=== PATIENT | female | born 1935 | race Hispanic/Latino ===

== ENCOUNTER 2017-03-26 10:30 | Inpatient (IN) | payer MEDICARE, BC ==
[2017-03-26 10:33] VITALS: BMI 16.7
[2017-03-26] MEDS ORDERED: SODIUM CHLORIDE 0.9% IV STA (11:22)
[2017-03-26] MEDS ORDERED: cefTRIAXone 1 gm 1 GM/100 ML BAG IVPB STA (11:24)
--- NOTE | 2017-03-26 11:25 | ED PDOC ---
Arrival/HPI - General Chief Complaint: Weakness/Neurological Deficit Time Seen by Provider: 03/26/17 11:21 Historian: Patient, Spouse - History of Present Illness Narrative History of Present Illness (Text): 03/26/17 11:24 82 year old female whose past medical history includes hypertension and hypercholesterolemia presents to the emergency department with hematuria for the past two days. Patient states she feels a burning sensation when urinating. states she has not been eating. Patient reports she is tremulous today. She states she went to an urgent care yesterday and was given Bactrim, 3rd pill taken this morning, with no improvement. Denies fever or back pain. Time/Duration: < week Symptom Onset: Gradual Symptom Course: Unchanged Modifying Factors (Text): Bactrim with no improvement Past Medical History - Provider Review Nursing Documentation Reviewed: Yes - Infectious Disease Hx of Infectious Diseases: None - Tetanus Immunization Tetanus Immunization: Unknown - Cardiac Hx Cardiac Disorders: Yes (tachycardia) Hx Hypertension: Yes - Pulmonary Hx Respiratory Disorders: Yes Hx Chronic Obstructive Pulmonary Disease (COPD): Yes - Neurological Hx Neurological Disorder: No - HEENT Hx HEENT Disorder: No - Renal Hx Renal Disorder: Yes Hx Renal Failure: Yes (resolved) - Endocrine/Metabolic Hx Endocrine Disorders: No - Hematological/Oncological Hx Blood Disorders: No - Integumentary Hx Dermatological Disorder: No - Musculoskeletal/Rheumatological Hx Musculoskeletal Disorders: Yes Hx Arthritis: Yes - Gastrointestinal Hx Gastrointestinal Disorders: Yes Hx Gastroesophageal Reflux: Yes - Genitourinary/Gynecological Hx Genitourinary Disorders: No - Psychiatric Hx Psychophysiologic Disorder: No Hx Substance Use: No - Past Surgical History Past Surgical History: No Previous - Anesthesia Hx Anesthesia: No Hx Anesthesia Reactions: No Hx Malignant Hyperthermia: No - Suicidal Assessment Feels Threatened In Home Enviroment: No Family/Social History - Physician Review Nursing Documentation Reviewed: Yes Family/Social History: Unknown Family HX Smoking Status: Current Some Days Smoker Hx Alcohol Use: No Hx Substance Use: No Hx Substance Use Treatment: Yes Allergies/Home Meds Allergies/Adverse Reactions: Allergies No Known Allergies Allergy (Verified 03/26/17 10:33) Home Medications: Home Meds Medication Instructions Recorded Confirmed Pravastatin Sodium [Pravachol] 20 mg PO DAILY 03/26/17 03/26/17 Sulfamethoxazole/Trimethoprim 1 tab PO BID 03/26/17 03/26/17 [Bactrim DS Tab] Valsartan [Diovan] 320 mg PO DAILY 03/26/17 03/26/17 amLODIPine [Norvasc] 5 mg PO DAILY 03/26/17 03/26/17 Review of Systems - Physician Review All systems were reviewed & negative as marked: Yes - Review of Systems Constitutional: absent: Fevers Genitourinary Female: Dysuria, Hematuria Musculoskeletal: absent: Back Pain Physical Exam - Physical Exam Narrative Physical Exam (Text): Constitutional: No acute distress. Head: Normocephalic. Atraumatic. Eyes: PERRL. ENT: Dry mucous membranes. Neck: Supple. Cardiovascular: Regular rate. Murmur. Chest: No tenderness. Respiratory: Clear to auscultation bilaterally. GI: Soft. Suprapubic tenderness. Nondistended. Back: No CVA tenderness. Musculoskeletal: No tenderness or swelling of extremities. Skin: No rash. Neurologic: Alert, no focal deficit. Vital Signs Reviewed: Yes Vital Signs Temp Pulse Resp BP Pulse Ox 03/26/17 13:09 89 18 138/67 96 03/26/17 12:02 98 H 18 142/69 95 03/26/17 10:34 98.6 F 108 H 17 146/72 94 L Temperature: Afebrile Blood Pressure: Normal Pulse: Tachycardic Respiratory Rate: Normal Appearance: Positive for: Well-Appearing, Non-Toxic, Comfortable Pain Distress: None Mental Status: Positive for: Alert and Oriented X 3 Medical Decision Making ED Course and Treatment: Impression: 82 year old female whose past medical history includes hypertension and hypercholesterolemia presents to the emergency department with hematuria for the past two days. Differential Diagnosis included but are not limited to: Dehydration vs UTI Plan: -- EKG, Chest X-ray -- Rocephin -- IV fluids -- Labs, Urinalysis -- Reassess and disposition Prior Visits: Notes and results from previous visits were reviewed. Patient last seen in the ED on 11/02/14 for generalized weakness and loss of appetite and admitted for hyperkalemia Progress Notes: EKG shows NSR at [address]/T wave changes. Interpreted by me. Chest X-ray Concrete Bucket Loader: Fletcher Berman MD IMPRESSION: No active disease Patient with tachycardia on arrival but no other sepsis criteria so CODE STROKE not activated. Patient with UTI, lactate 3.8, requires admission for continued hydration and antibiotics intravenously. Dr. Waddell accepts patient to his service, and his neuropsychology medical consultant notified. - Lab Interpretations Lab Results: 03/26/17 11:30 03/26/17 11:30 Lab Results 03/26/17 11:55: Urine Color Yellow, Urine Appearance Sl cloudy, Urine pH 6.0, Ur Specific [place] 1.010, Urine Protein Trace H, Urine Glucose (UA) Negative, Urine Ketones Negative, Urine Blood Moderate H, Urine Nitrate Negative, Urine Bilirubin Negative, Urine Urobilinogen 0.2, Ur Leukocyte Esterase Large H, Urine RBC 1 - 3, Urine WBC Tntc, Ur Epithelial Cells 1 - 3, Urine Bacteria Mod 03/26/17 11:30: WBC 9.5, RBC 3.83, Hgb 12.5, Hct 35.8 L, MCV 93.5, MCH 32.6, MCHC 34.9, RDW 13.9, Plt Count 351, MPV 9.2, Gran % 65.6, Lymph % (Auto) 24.7, [place] % (Auto) 8.3 H, Eos % (Auto) 0.6 L, Baso % (Auto) 0.8, Gran # 6.21, Lymph # 2.3, [place] # 0.8 H, Eos # 0.1, Baso # 0.08 03/26/17 11:30: Sodium 136, Chloride 104, Potassium 3.8, Carbon Dioxide 20 L, Anion Gap 16, BUN 16, Creatinine 1.1, Est GFR ( Amer) 58, Est GFR (Non- Af Amer) 48, Random Glucose 105, Calcium 9.5, Total Bilirubin 0.6, AST 30, ALT 19, Alkaline Phosphatase 70, Total Protein 7.3, Albumin 4.4, Globulin 3.0, Albumin/Globulin Ratio 1.5 03/26/17 11:30: pO2 47, VBG pH 7.34, VBG pCO2 37.0 L, VBG HCO3 20.0 L, VBG Total CO2 21.1 L, VBG O2 Sat (Calc) 87.3 H, VBG Base Excess -5.2 L, VBG Potassium 3.9, Sodium 136.0, Chloride 107.0, Glucose 109 H, Lactate 3.1 H, FiO2 21.0, Venous Blood Potassium 3.9 - RAD Interpretation Radiology Orders: 03/26/17 11:22 CHEST PORTABLE [RAD] Stat Bag Shop Worker: Radiologist - EKG Interpretation Interpreted by ED Physician: Yes Type: 12 lead EKG - Medication Orders Current Medication Orders: Discontinued Medications Sodium Chloride (Sodium Chloride 0.9%) 1,131 mls @ 2,262 mls/hr IV .Q30M STA Stop: 03/26/17 11:51 Last Admin: 03/26/17 11:53 Dose: 2,262 mls/hr Ceftriaxone Sodium (Rocephin 1 Gram Ivpb) 1 gm in 100 mls @ 200 mls/hr IVPB STAT STA PRN Reason: Protocol Stop: 03/26/17 11:53 Last Admin: 03/26/17 11:53 Dose: 200 mls/hr - Scribe Statement The provider has reviewed the documentation as recorded by the Thierno Rosa Provider Scribe Attestation: All medical record entries made by the Faraibmelva were at my direction and personally dictated by me. I have reviewed the chart and agree that the record accurately reflects my personal performance of the history, physical exam, medical decision making, and the department course for this patient. I have also personally directed, reviewed, and agree with the discharge instructions and disposition. Disposition/Present on Arrival - Present on Arrival Any Indicators Present on Arrival: No History of DVT/PE: No History of Uncontrolled Diabetes: No Urinary Catheter: No History of Decub. Ulcer: No History Surgical Site Infection Following: None - Disposition Have Diagnosis and Disposition been Completed?: Yes Diagnosis: UTI (urinary tract infection), Failure of outpatient treatment Disposition: HOSPITALIZED Disposition Time: 12:20 Patient Plan: Admission Condition: FAIR Referrals: Charbel Morales MD [Primary Care Provider] - Follow up with primary
[2017-03-26 11:52] LABS: ADD MANUAL DIFF? NO
[2017-03-26 11:58] LABS: VENOUS BLOOD GAS BASE EXCESS -5.2 mmol/L (0.0-2.0); VENOUS BLOOD PH 7.34 (7.32-7.43)
[2017-03-26 12:00] LABS: BASO # 0.08 K/mm3 (0.0-2.0); BASO % 0.8 % (0.0-3.0); EOS # 0.1 (0.0-0.7); EOS % 0.6 % (1.5-5.0); GRAN # 6.21 (1.4-6.5); GRAN % 65.6 % (50.0-68.0); HEMATOCRIT 35.8 % (36.0-48.0); LYMPH # 2.3 (1.2-3.4); LYMPH % 24.7 % (22.0-35.0); MEAN CELL VOLUME 93.5 fL (80.0-105.0); MEAN CORPUSCULAR HEMOGLOBIN 32.6 pg (25.0-35.0); MEAN CORPUSCULAR HGB CONC 34.9 g/dl (31.0-37.0); MEAN PLATELET VOLUME 9.2 fl (7.0-11.0); MONO # 0.8 (0.1-0.6); MONO % 8.3 % (1.0-6.0); PLATELET COUNT 351 10^3/uL (120.0-450.0); RED CELL DISTRIBUTION WIDTH 13.9 % (11.5-14.5); WHITE BLOOD COUNT 9.5 10^3/ul (4.5-11.0)
[2017-03-26 12:03] VITALS: RESP 18
[2017-03-26 12:04] LABS: ALB/GLOB RATIO 1.5 (1.1-1.8); BILIRUBIN,TOTAL 0.6 mg/dL (0.2-1.3); CALCIUM 9.5 mg/dL (8.4-10.5); POTASSIUM 3.8 mmol/L (3.6-5.0); TOTAL PROTEIN 7.3 g/dL (5.8-8.3)
--- NOTE | 2017-03-26 12:10 | RAD ---
HISTORY: tachycardia, tremulousness COMPARISON: 11/02/2014 FINDINGS: LUNGS: No active pulmonary disease. PLEURA: No significant pleural effusion identified, no pneumothorax apparent. CARDIOVASCULAR: The heart is normal in size. There is moderate aortic tortuosity OSSEOUS STRUCTURES: No significant abnormalities. VISUALIZED UPPER ABDOMEN: Normal. OTHER FINDINGS: None. IMPRESSION: No active disease.
[2017-03-26 12:17] LABS: URINE APPEARANCE SL CLOUDY (CLEAR); URINE BILIRUBIN NEGATIVE (NEGATIVE); URINE BLOOD MODERATE (NEGATIVE); URINE COLOR YELLOW (YELLOW); URINE GLUCOSE (UA) NEGATIVE (NEGATIVE); URINE KETONE NEGATIVE (NEGATIVE); URINE LEUKOCYTE ESTERASE LARGE Leu/uL (NEGATIVE); URINE PROTEIN TRACE mg/dL (<30 mg/dL); URINE UROBILINOGEN 0.2 E.U./dL (<1 E.U./dL)
[2017-03-26 12:37] LABS: URINE BACTERIA MOD (NEG); URINE WBC TNTC /hpf (0-6)
--- NOTE | 2017-03-26 15:14 | CARD ---
APPROVED REPORT EKG Measurement Heart [id number] <Conclusion> Sinus rhythm with premature supraventricular complexes Otherwise normal ECG
--- NOTE | 2017-03-26 16:22 | CP.PCM.HP ---
<Kalie Dow - Last Filed: 03/26/17 16:43> History of Present Illness - History of Present Illness History of Present Illness: CC: I feel full in my belly Patient is an 82 y/o with pmh of htn, hld, active tobacco use, cachetic presenting with uti resistance to outpatient treatment. Patient states on Wednesday when she urinated she saw bloody urine in the toiled bowl, then subsequently her urine became orange. Patient went to urgent care, and was prescribed TM-Sulfamethoxazole. Patient states she has been taking the abx for 2 days now with no improvement. C/o increased frequency, and burning like sensation when she urinate. Patient denies fevers, admits to chills, denies n/v/ d. Denies abdominal pain. Patient has urge incontinence and wears diaper. PMH: htn, hld, active tobacco use, malnourished. PSH: None Social: smokes 2 packs a day for 53 yrs. denies illicit drug use, admits to occasional alcohol. Lives with her spouse, walks unassisted. Allergy: NKDA Home meds: see emr for full list. Present on Admission - Present on Admission Any Indicators Present on Admission: No History of DVT/PE: No History of Uncontrolled Diabetes: No Urinary Catheter: No Decubitus Ulcer Present: No Review of Systems - Review of Systems All systems: reviewed and no additional remarkable complaints except Review of Systems: As mentioned in the hpi. Past Patient History - Infectious Disease Hx of Infectious Diseases: None - Tetanus Immunizations Tetanus Immunization: Unknown - Past Social History Smoking Status: Heavy Smoker > 10 Cigarettes Daily Alcohol: Occasional Drugs: Denies Home Situation {Lives}: With Family - CARDIAC Hx Cardiac Disorders: Yes (tachycardia) Hx Hypertension: Yes - PULMONARY Hx Respiratory Disorders: Yes Hx Chronic Obstructive Pulmonary Disease (COPD): Yes - NEUROLOGICAL Hx Neurological Disorder: No - HEENT Hx HEENT Problems: No - RENAL Hx Chronic Kidney Disease: Yes Hx Renal Failure: Yes (resolved) - ENDOCRINE/METABOLIC Hx Endocrine Disorders: No - HEMATOLOGICAL/ONCOLOGICAL Hx Blood Disorders: No - INTEGUMENTARY Hx Dermatological Problems: No - MUSCULOSKELETAL/RHEUMATOLOGICAL Hx Musculoskeletal Disorders: Yes Hx Arthritis: Yes - GASTROINTESTINAL Hx Gastrointestinal Disorders: Yes Hx Gastroesophageal Reflux: Yes - GENITOURINARY/GYNECOLOGICAL Hx Genitourinary Disorders: No - PSYCHIATRIC Hx Psychophysiologic Disorder: No Hx Substance Use: No - SURGICAL HISTORY Hx Surgeries: No - ANESTHESIA Hx Anesthesia: No Hx Anesthesia Reactions: No Hx Malignant Hyperthermia: No Meds Allergies/Adverse Reactions: Allergies Allergy/AdvReac Type Severity Reaction Status Date / Time No Known Allergies Allergy Verified 03/26/17 18:02 Physical Exam - Constitutional Appears: No Acute Distress, Cachectic - Head Exam Head Exam: ATRAUMATIC, NORMAL INSPECTION, NORMOCEPHALIC - Eye Exam Eye Exam: EOMI, Normal appearance, PERRL. absent: Scleral icterus - ENT Exam ENT Exam: Mucous Membranes Dry - Neck Exam Neck exam: Positive for: Normal Inspection - Respiratory Exam Respiratory Exam: Clear to Auscultation Bilateral, NORMAL BREATHING PATTERN. absent: Rales, Rhonchi, Wheezes, Respiratory Distress, Stridor - Cardiovascular Exam Cardiovascular Exam: REGULAR RHYTHM, RRR, +S1, +S2. absent: Bradycardia, Tachycardia, Irregular Rhythm, Systolic Murmur - GI/Abdominal Exam GI & Abdominal Exam: Normal Bowel Sounds, Soft. absent: Distended, Firm, Guarding, Tenderness - Extremities Exam Extremities exam: Positive for: normal inspection - Back Exam Back exam: NORMAL INSPECTION. absent: CVA tenderness (L), CVA tenderness (R), paraspinal tenderness, tenderness, vertebral tenderness - Neurological Exam Neurological exam: Alert, Oriented x3 - Psychiatric Exam Psychiatric exam: Normal Affect, Normal Mood - Skin Skin Exam: Dry, Intact, Normal Color, Warm Results - Vital Signs Recent Vital Signs: Last Vital Signs Temp 98.6 F 03/26/17 10:34 Pulse 79 03/26/17 15:02 Resp 18 03/26/17 15:02 BP 135/69 03/26/17 15:02 Pulse Ox 96 03/26/17 15:02 - Labs Result Diagrams: 03/26/17 11:30 03/26/17 11:30 Labs: Laboratory Results - last 24 hr 03/26/17 03/26/17 03/26/17 11:30 11:30 11:30 WBC 9.5 RBC 3.83 Hgb 12.5 Hct 35.8 L MCV 93.5 MCH 32.6 MCHC 34.9 RDW 13.9 Plt Count 351 MPV 9.2 Gran % 65.6 Lymph % (Auto) 24.7 [place] % (Auto) 8.3 H Eos % (Auto) 0.6 L Baso % (Auto) 0.8 Gran # 6.21 Lymph # 2.3 [place] # 0.8 H Eos # 0.1 Baso # 0.08 pO2 47 VBG pH 7.34 VBG pCO2 37.0 L VBG HCO3 20.0 L VBG Total CO2 21.1 L VBG O2 Sat (Calc) 87.3 H VBG Base Excess -5.2 L VBG Potassium 3.9 Sodium 136.0 136 Chloride 107.0 104 Glucose 109 H Lactate 3.1 H FiO2 21.0 Potassium 3.8 Carbon Dioxide 20 L Anion Gap 16 BUN 16 Creatinine 1.1 Est GFR ( Amer) 58 Est GFR (Non-Af Amer) 48 Random Glucose 105 Calcium 9.5 Total Bilirubin 0.6 AST 30 ALT 19 Alkaline Phosphatase 70 Total Protein 7.3 Albumin 4.4 Globulin 3.0 Albumin/Globulin Ratio 1.5 Venous Blood Potassium 3.9 Urine Color Urine Appearance Urine pH Ur Specific [place] Urine Protein Urine Glucose (UA) Urine Ketones Urine Blood Urine Nitrate Urine Bilirubin Urine Urobilinogen Ur Leukocyte Esterase Urine RBC Urine WBC Ur Epithelial Cells Urine Bacteria 03/26/17 11:55 WBC RBC Hgb Hct MCV MCH MCHC RDW Plt Count MPV Gran % Lymph % (Auto) [place] % (Auto) Eos % (Auto) Baso % (Auto) Gran # Lymph # [place] # Eos # Baso # pO2 VBG pH VBG pCO2 VBG HCO3 VBG Total CO2 VBG O2 Sat (Calc) VBG Base Excess VBG Potassium Sodium Chloride Glucose Lactate FiO2 Potassium Carbon Dioxide Anion Gap BUN Creatinine Est GFR ( Amer) Est GFR (Non-Af Amer) Random Glucose Calcium Total Bilirubin AST ALT Alkaline Phosphatase Total Protein Albumin Globulin Albumin/Globulin Ratio Venous Blood Potassium Urine Color Yellow Urine Appearance Sl cloudy Urine pH 6.0 Ur Specific [place] 1.010 Urine Protein Trace H Urine Glucose (UA) Negative Urine Ketones Negative Urine Blood Moderate H Urine Nitrate Negative Urine Bilirubin Negative Urine Urobilinogen 0.2 Ur Leukocyte Esterase Large H Urine RBC 1 - 3 Urine WBC Tntc Ur Epithelial Cells 1 - 3 Urine Bacteria Mod - EKG Data EKG Interpreted by: Myself EKG shows normal: Sinus rhythm Rate: Normal Assessment & Plan - Assessment and Plan (Free Text) Assessment: Patient is an 82 y/o with pmh of htn, hld, active tobacco use, malnourished presenting with uti resistance to outpatient treatment. Plan: 1) UTI refractory to outpatient treatment - no wbc, afebrile - will continue Rocephin - will send ucx, and bcx. - ns@50cc h/hr 2) Elevated lactic acid - Lactic acid 3.1 - although patient doesn't meet sepsis criteria - cultures as above - ivf and antibiotics. 3) htn- continue valsartan, and Norvasc 4) hld- continue lipitor 5) Tobacco use- nicotine patch 6) dvt and gi prophylaxis- scds and Pepcid. Patient seen,examined, case discussed with Dr Waddell. - Date & Time Date: 03/26/17 Time: 16:45 <Jose Waddell - Last Filed: 04/15/17 19:23> Results - Vital Signs Recent Vital Signs: Last Vital Signs Temp 97.7 F 03/27/17 07:30 Pulse 83 03/27/17 07:30 Resp 18 03/27/17 07:30 BP 120/55 L 03/27/17 07:30 Pulse Ox 93 L 03/27/17 07:30 - Labs Result Diagrams: 03/27/17 07:00 03/27/17 07:00 Attending/Attestation - Attestation I have personally seen and examined this patient.: Yes I have fully participated in the care of the patient.: Yes I have reviewed all pertinent clinical information: Yes Notes (Text): 04/15/17 19:23 Medical record note made by the resident after discussion with my direction and input after the patient was personally seen and examined by me. I have reviewed the chart and agree that the record accurately reflects by personal performance of the history, physical exam, data review, and medical decision-making, in the course for the patient. I have also personally directed the plan of care.
[2017-03-26] MEDS ORDERED: Sodium Chloride 0.9% 1,000 ML IV SCH (16:30)
[2017-03-26] MEDS ORDERED: levoFLOXacin 250 mg in D5W 250 MG/50 ML BAG IVPB SCH (16:30)
[2017-03-26] MEDS ORDERED: Pneumococcal 23-Valent Vaccine IM ONE (19:24)
--- NOTE | 2017-03-27 06:43 | CP.PCM.PN ---
Objective - Vital Signs/Intake and Output Vital Signs (last 24 hours): Temp Pulse Resp BP Pulse Ox 98.2 F 80 18 156/60 H 94 L 03/26/17 19:06 03/26/17 19:06 03/26/17 19:06 03/26/17 19:06 03/26/17 17:14 Intake and Output: 03/26/17 03/27/17 18:59 06:59 Intake Total 1240 Balance 1240 - Medications Medications: Current Medications Acetaminophen (Tylenol 325mg Tab) 650 mg PO Q6H PRN PRN Reason: Fever >100.4 F Amlodipine Besylate (Norvasc) 5 mg PO DAILY [facility] Atorvastatin Calcium (Lipitor) 20 mg PO DIN [facility] Last Admin: 03/26/17 17:08 Dose: Not Given Famotidine (Pepcid) 40 mg PO HS [facility] Last Admin: 03/26/17 21:43 Dose: 40 mg Ceftriaxone Sodium (Rocephin 1 Gram Ivpb) 1 gm in 100 mls @ 100 mls/hr IVPB DAILY [facility] PRN Reason: Protocol Sodium Chloride (Sodium Chloride 0.9%) 1,000 mls @ 40 mls/hr IV .Q24H [facility] Last Admin: 03/26/17 20:39 Dose: 40 mls/hr Nicotine (Nicoderm Cq) 1 patch TD DAILY [facility] Last Admin: 03/26/17 17:09 Dose: Not Given Valsartan (Diovan) 320 mg PO DAILY [facility]
[2017-03-27 07:53] VITALS: BP 120/55; PULSE 83; TEMP 97.7; O2SAT 93
[2017-03-27 08:22] LABS: ADD MANUAL DIFF? NO
[2017-03-27 08:28] LABS: BASO % 1.3 % (0.0-3.0); EOS # 0.3 (0.0-0.7); EOS % 3.3 % (1.5-5.0); GRAN # 4.47 (1.4-6.5); HEMATOCRIT 33.7 % (36.0-48.0); LYMPH # 2.4 (1.2-3.4); LYMPH % 30.1 % (22.0-35.0); MEAN CELL VOLUME 94.1 fL (80.0-105.0); MEAN CORPUSCULAR HEMOGLOBIN 31.6 pg (25.0-35.0); MEAN CORPUSCULAR HGB CONC 33.5 g/dl (31.0-37.0); MEAN PLATELET VOLUME 9.3 fl (7.0-11.0); MONO # 0.7 (0.1-0.6); MONO % 9.3 % (1.0-6.0); PLATELET COUNT 329 10^3/uL (120.0-450.0); RED CELL DISTRIBUTION WIDTH 14.2 % (11.5-14.5)
[2017-03-27 08:55] LABS: BLOOD UREA NITROGEN 9 mg/dL (7-21); CALCIUM 8.8 mg/dL (8.4-10.5); CARBON DIOXIDE 19 mmol/L (21-33); CHLORIDE 112 mmol/L (95-110); GFR AFRICAN-AMERICAN > 60; GLUCOSE,RANDOM 74 mg/dL (70-110); POTASSIUM 4.2 mmol/L (3.6-5.0); SODIUM 137 mmol/L (132-148)
[2017-03-27] MEDS ORDERED: cefTRIAXone 1 gm 1 GM/100 ML BAG IVPB SCH (10:00)
--- NOTE | 2017-03-27 11:55 | CP.PCM.DIS ---
<AnabelgisellaKalie vazquez - Last Filed: 03/29/17 14:27> Provider - Provider Date of Admission: 03/26/17 14:16 Attending physician: Charbel Morales MD Primary care physician: Charbel Morales MD Consults: none Time Spent in preparation of Discharge (in minutes): 45 Diagnosis - Discharge Diagnosis (1) Failure of outpatient treatment Status: Acute (2) UTI (urinary tract infection) Status: Acute (3) Lactic acid acidosis Status: Acute (4) Hypertension Status: Chronic (5) Dyslipidemia Status: Chronic (6) Tobacco abuse Status: Chronic Hospital Course - Lab Results Lab Results: Most Recent Lab Values WBC 8.0 10^3/ul (4.5-11.0) 03/27/17 07:00 RBC 3.58 10^6/uL (3.5-6.1) 03/27/17 07:00 Hgb 11.3 gm/dL (12.0-16.0) L 03/27/17 07:00 Hct 33.7 % (36.0-48.0) L 03/27/17 07:00 MCV 94.1 fL (80.0-105.0) 03/27/17 07:00 MCH 31.6 pg (25.0-35.0) 03/27/17 07:00 MCHC 33.5 g/dl (31.0-37.0) 03/27/17 07:00 RDW 14.2 % (11.5-14.5) 03/27/17 07:00 Plt Count 329 10^3/uL (120.0-450.0) 03/27/17 07:00 MPV 9.3 fl (7.0-11.0) 03/27/17 07:00 Gran % 56.0 % (50.0-68.0) 03/27/17 07:00 Lymph % (Auto) 30.1 % (22.0-35.0) 03/27/17 07:00 [place] % (Auto) 9.3 % (1.0-6.0) H 03/27/17 07:00 Eos % (Auto) 3.3 % (1.5-5.0) 03/27/17 07:00 Baso % (Auto) 1.3 % (0.0-3.0) 03/27/17 07:00 Gran # 4.47 (1.4-6.5) 03/27/17 07:00 Lymph # 2.4 (1.2-3.4) 03/27/17 07:00 [place] # 0.7 (0.1-0.6) H 03/27/17 07:00 Eos # 0.3 (0.0-0.7) 03/27/17 07:00 Baso # 0.10 K/mm3 (0.0-2.0) 03/27/17 07:00 pO2 47 mm/Hg (30-55) 03/26/17 11:30 VBG pH 7.34 (7.32-7.43) 03/26/17 11:30 VBG pCO2 37.0 (40-60) L 03/26/17 11:30 VBG HCO3 20.0 mmol/l (21-28) L 03/26/17 11:30 VBG Total CO2 21.1 mmol.L (22-28) L 03/26/17 11:30 VBG O2 Sat (Calc) 87.3 % (40-65) H 03/26/17 11:30 VBG Base Excess -5.2 mmol/L (0.0-2.0) L 03/26/17 11:30 VBG Potassium 3.9 mmol/L (3.6-5.2) 03/26/17 11:30 Sodium 136.0 mmol/L (132-148) 03/26/17 11:30 Chloride 107.0 mmol/L (98-107) 03/26/17 11:30 Glucose 109 mg/dl (65-105) H 03/26/17 11:30 Lactate 3.1 mmol/L (0.7-2.1) H 03/26/17 11:30 FiO2 21.0 % 03/26/17 11:30 Sodium 137 mmol/L (132-148) 03/27/17 07:00 Potassium 4.2 mmol/L (3.6-5.0) 03/27/17 07:00 Chloride 112 mmol/L (95-110) H 03/27/17 07:00 Carbon Dioxide 19 mmol/L (21-33) L 03/27/17 07:00 Anion Gap 10 (10-20) 03/27/17 07:00 BUN 9 mg/dL (7-21) 03/27/17 07:00 Creatinine 0.9 mg/dL (0.5-1.4) 03/27/17 07:00 Est GFR ( Amer) > 60 03/27/17 07:00 Est GFR (Non-Af Amer) > 60 03/27/17 07:00 Random Glucose 74 mg/dL (70-110) 03/27/17 07:00 Calcium 8.8 mg/dL (8.4-10.5) 03/27/17 07:00 Total Bilirubin 0.6 mg/dL (0.2-1.3) 03/26/17 11:30 AST 30 U/L (15-39) 03/26/17 11:30 ALT 19 U/L (7-56) 03/26/17 11:30 Alkaline Phosphatase 70 U/L (38-133) 03/26/17 11:30 Total Protein 7.3 g/dL (5.8-8.3) 03/26/17 11:30 Albumin 4.4 g/dL (3.0-4.8) 03/26/17 11:30 Globulin 3.0 gm/dL 03/26/17 11:30 Albumin/Globulin Ratio 1.5 (1.1-1.8) 03/26/17 11:30 Venous Blood Potassium 3.9 mmol/L (3.6-5.2) 03/26/17 11:30 Urine Color Yellow (YELLOW) 03/26/17 11:55 Urine Appearance Sl cloudy (CLEAR) 03/26/17 11:55 Urine pH 6.0 (4.7-8.0) 03/26/17 11:55 Ur Specific [place] 1.010 (1.005-1.035) 03/26/17 11:55 Urine Protein Trace mg/dL (<30 mg/dL) H 03/26/17 11:55 Urine Glucose (UA) Negative mg/dL (NEGATIVE) 03/26/17 11:55 Urine Ketones Negative mg/dL (NEGATIVE) 03/26/17 11:55 Urine Blood Moderate (NEGATIVE) H 03/26/17 11:55 Urine Nitrate Negative (NEGATIVE) 03/26/17 11:55 Urine Bilirubin Negative (NEGATIVE) 03/26/17 11:55 Urine Urobilinogen 0.2 E.U./dL (<1 E.U./dL) 03/26/17 11:55 Ur Leukocyte Esterase Large [place]ore[place]/uL (NEGATIVE) H 03/26/17 11:55 Urine RBC 1 - 3 /hpf (0-2) 03/26/17 11:55 Urine WBC Tntc /hpf (0-6) 03/26/17 11:55 Ur Epithelial Cells 1 - 3 /hpf (0-5) 03/26/17 11:55 Urine Bacteria Mod (NEG) 03/26/17 11:55 - Hospital Course Hospital Course: Patient is an 82 y/o with pmh of htn, hld, active tobacco use, malnourished presenting with uti resistance to outpatient treatment. ua was positive for uti , blood culture no growth, ucx with multiple species. Patient was hydrated and started on Rocephin. Patient reported improvement in the urinary symptoms. Patient was discharged with Levaquin to follow up with Dr Morales in office. - Date & Time of H&P Date of H&P: 03/25/17 Time of H&P: 16:20 Discharge Exam - Head Exam Head Exam: ATRAUMATIC, NORMAL INSPECTION, NORMOCEPHALIC - Eye Exam Eye Exam: EOMI, Normal appearance, PERRL. absent: Scleral icterus - ENT Exam ENT Exam: Mucous Membranes Moist - Neck Exam Neck exam: Normal Inspection - Respiratory Exam Respiratory Exam: Clear to PA & Lateral, NORMAL BREATHING PATTERN, UNREMARKABLE. absent: Rales, Rhonchi, Wheezes, Respiratory Distress, Stridor - Cardiovascular Exam Cardiovascular Exam: REGULAR RHYTHM, +S1, +S2. absent: Irregular Rhythm, Systolic Murmur - GI/Abdominal Exam GI & Abdominal Exam: Normal Bowel Sounds, Soft, Unremarkable. absent: Distended , Guarding, Rigid, Tenderness - Extremities Exam Extremities exam: normal inspection - Back Exam Back exam: NORMAL INSPECTION - Neurological Exam Neurological exam: Alert, Oriented x3 - Psychiatric Exam Psychiatric exam: Normal Affect, Normal Mood - Skin Skin Exam: Dry, Intact, Normal Color, Warm Discharge Plan - Discharge Medications Prescriptions: Levofloxacin [Levaquin] 750 mg PO DAILY #4 tablet - Follow Up Plan Condition: FAIR Disposition: HOME/ ROUTINE Patient education suggested?: Yes Instructions: How to Stop Smoking (DC), Urinary Tract Infection in Women (DC), Urinary Tract Infection in Men (DC), Cigarette Smoking and Your Health (GEN), Dysuria (GEN), Hypertension (DC), Hypertension (GEN), Fall Prevention (GEN) Additional Instructions: Antibiotics sent to [facility] [address] Take the antibiotic once a day for 4 more days. Drink plenty of water Referrals: Charbel Morales MD [Primary Care Provider] - <BaironJose - Last Filed: 04/16/17 18:44> Provider - Provider Date of Admission: 03/26/17 14:16 Attending physician: Charbel Morales MD Primary care physician: Charbel Morales MD Hospital Course - Lab Results Lab Results: Most Recent Lab Values WBC 8.0 10^3/ul (4.5-11.0) 03/27/17 07:00 RBC 3.58 10^6/uL (3.5-6.1) 03/27/17 07:00 Hgb 11.3 gm/dL (12.0-16.0) L 03/27/17 07:00 Hct 33.7 % (36.0-48.0) L 03/27/17 07:00 MCV 94.1 fL (80.0-105.0) 03/27/17 07:00 MCH 31.6 pg (25.0-35.0) 03/27/17 07:00 MCHC 33.5 g/dl (31.0-37.0) 03/27/17 07:00 RDW 14.2 % (11.5-14.5) 03/27/17 07:00 Plt Count 329 10^3/uL (120.0-450.0) 03/27/17 07:00 MPV 9.3 fl (7.0-11.0) 03/27/17 07:00 Gran % 56.0 % (50.0-68.0) 03/27/17 07:00 Lymph % (Auto) 30.1 % (22.0-35.0) 03/27/17 07:00 [place] % (Auto) 9.3 % (1.0-6.0) H 03/27/17 07:00 Eos % (Auto) 3.3 % (1.5-5.0) 03/27/17 07:00 Baso % (Auto) 1.3 % (0.0-3.0) 03/27/17 07:00 Gran # 4.47 (1.4-6.5) 03/27/17 07:00 Lymph # 2.4 (1.2-3.4) 03/27/17 07:00 [place] # 0.7 (0.1-0.6) H 03/27/17 07:00 Eos # 0.3 (0.0-0.7) 03/27/17 07:00 Baso # 0.10 K/mm3 (0.0-2.0) 03/27/17 07:00 pO2 47 mm/Hg (30-55) 03/26/17 11:30 VBG pH 7.34 (7.32-7.43) 03/26/17 11:30 VBG pCO2 37.0 (40-60) L 03/26/17 11:30 VBG HCO3 20.0 mmol/l (21-28) L 03/26/17 11:30 VBG Total CO2 21.1 mmol.L (22-28) L 03/26/17 11:30 VBG O2 Sat (Calc) 87.3 % (40-65) H 03/26/17 11:30 VBG Base Excess -5.2 mmol/L (0.0-2.0) L 03/26/17 11:30 VBG Potassium 3.9 mmol/L (3.6-5.2) 03/26/17 11:30 Sodium 136.0 mmol/L (132-148) 03/26/17 11:30 Chloride 107.0 mmol/L (98-107) 03/26/17 11:30 Glucose 109 mg/dl (65-105) H 03/26/17 11:30 Lactate 3.1 mmol/L (0.7-2.1) H 03/26/17 11:30 FiO2 21.0 % 03/26/17 11:30 Sodium 137 mmol/L (132-148) 03/27/17 07:00 Potassium 4.2 mmol/L (3.6-5.0) 03/27/17 07:00 Chloride 112 mmol/L (95-110) H 03/27/17 07:00 Carbon Dioxide 19 mmol/L (21-33) L 03/27/17 07:00 Anion Gap 10 (10-20) 03/27/17 07:00 BUN 9 mg/dL (7-21) 03/27/17 07:00 Creatinine 0.9 mg/dL (0.5-1.4) 03/27/17 07:00 Est GFR ( Amer) > 60 03/27/17 07:00 Est GFR (Non-Af Amer) > 60 03/27/17 07:00 Random Glucose 74 mg/dL (70-110) 03/27/17 07:00 Calcium 8.8 mg/dL (8.4-10.5) 03/27/17 07:00 Total Bilirubin 0.6 mg/dL (0.2-1.3) 03/26/17 11:30 AST 30 U/L (15-39) 03/26/17 11:30 ALT 19 U/L (7-56) 03/26/17 11:30 Alkaline Phosphatase 70 U/L (38-133) 03/26/17 11:30 Total Protein 7.3 g/dL (5.8-8.3) 03/26/17 11:30 Albumin 4.4 g/dL (3.0-4.8) 03/26/17 11:30 Globulin 3.0 gm/dL 03/26/17 11:30 Albumin/Globulin Ratio 1.5 (1.1-1.8) 03/26/17 11:30 Venous Blood Potassium 3.9 mmol/L (3.6-5.2) 03/26/17 11:30 Urine Color Yellow (YELLOW) 03/26/17 11:55 Urine Appearance Sl cloudy (CLEAR) 03/26/17 11:55 Urine pH 6.0 (4.7-8.0) 03/26/17 11:55 Ur Specific [place] 1.010 (1.005-1.035) 03/26/17 11:55 Urine Protein Trace mg/dL (<30 mg/dL) H 03/26/17 11:55 Urine Glucose (UA) Negative mg/dL (NEGATIVE) 03/26/17 11:55 Urine Ketones Negative mg/dL (NEGATIVE) 03/26/17 11:55 Urine Blood Moderate (NEGATIVE) H 03/26/17 11:55 Urine Nitrate Negative (NEGATIVE) 03/26/17 11:55 Urine Bilirubin Negative (NEGATIVE) 03/26/17 11:55 Urine Urobilinogen 0.2 E.U./dL (<1 E.U./dL) 03/26/17 11:55 Ur Leukocyte Esterase Large [place]/uL (NEGATIVE) H 03/26/17 11:55 Urine RBC 1 - 3 /hpf (0-2) 03/26/17 11:55 Urine WBC Tntc /hpf (0-6) 03/26/17 11:55 Ur Epithelial Cells 1 - 3 /hpf (0-5) 03/26/17 11:55 Urine Bacteria Mod (NEG) 03/26/17 11:55 Attending/Attestation - Attestation I have personally seen and examined this patient.: Yes I have fully participated in the care of the patient.: Yes I have reviewed all pertinent clinical information, including history, physical exam and plan: Yes Notes (Text): 04/16/17 18:44 Medical record note made by the resident after discussion with my direction and input after the patient was personally seen and examined by me. I have reviewed the chart and agree that the record accurately reflects by personal performance of the history, physical exam, data review, and medical decision-making, in the course for the patient. I have also personally directed the plan of care.
== END 2017-03-27 15:10 | disposition home or self-care (01) | DRG 690 ==
LOC: ED 10:30 → ERH 14:16 → 5RSO 16:23
PROVIDERS: ADMIT Internal Medicine; ATTEND Internal Medicine
DX: N39.0 Urinary tract infection, site not specified (principal); E87.2 Acidosis; J44.9 Chronic obstructive pulmonary disease, unspecified; E86.0 Dehydration; R31.9 Hematuria, unspecified; I12.9 Hypertensive chronic kidney disease with stage 1 through stage 4 chronic kidney disease, or unspecified chronic kidney disease; N18.9 Chronic kidney disease, unspecified; E78.5 Hyperlipidemia, unspecified; F17.210 Nicotine dependence, cigarettes, uncomplicated; K21.9 Gastro-esophageal reflux disease without esophagitis; N39.41 Urge incontinence; E78.00 Pure hypercholesterolemia, unspecified; R00.0 Tachycardia, unspecified; M19.90 Unspecified osteoarthritis, unspecified site

== ENCOUNTER 2017-07-06 06:51 | Day surgery (SDC) | payer MEDICARE, BC ==
[2017-07-06 07:20] VITALS: BMI 16.7
[2017-07-06] MEDS ORDERED: Propofol 10 mg/ml Inj (20 ML) ONE (08:34)
[2017-07-06] MEDS ORDERED: Phenylephrine 10 mg/ml Inj ONE (08:37)
[2017-07-06] MEDS ORDERED: cefTRIAXone 1 gm 1 GM/100 ML BAG IVPB STA (08:56)
[2017-07-06] MEDS ORDERED: cefTRIAXone (Rocephin) 1 gm Inj ONE (08:58)
[2017-07-06] MEDS ORDERED: Iohexol 240 (50 ml) ONE (09:14)
[2017-07-06] MEDS ORDERED: Lactated Ringer's 1,000 ML IV SCH (09:44)
[2017-07-06 09:56] VITALS: RESP 20
[2017-07-06 10:30] VITALS: PULSE 77; TEMP 97.5; O2SAT 98
[2017-07-06 11:11] VITALS: BP 138/68
--- NOTE | 2017-07-06 11:46 | OP ---
PROCEDURE DATE: 07/06/2017 PREOPERATIVE DIAGNOSIS: History of hematuria. POSTOPERATIVE DIAGNOSIS: Chronic bladder infection. PROCEDURES: Cystoscopy, bladder biopsies, and fulguration. SURGEON: Pedro Shaver MD TYPE OF ANESTHESIA: IV sedation. DESCRIPTION OF PROCEDURE: IV sedation was given because the patient was extremely frail and is a smoker. I was able to introduce a 22-Khmer cystourethroscope. The urine itself was purulent with a foul odor. Urine was obtained for C&S. The bladder was irrigated by filling and emptying bladder and feel like it get good visualization. There was no evidence of tumors, foreign bodies, or stones. There was evidence of phlegmon, when the floor of the bladder did not appearance of tumor. Orifices were difficult to see because of this. Also I elected not to do retrograde pyelogram even if they were visible because of the purulent urine of my concern and I would possibly make her septic. The provider relations representative areas of phlegmon on the floor were biopsied. One area was fulgurated. There was no evidence of any bleeding, had the appearance of a chronic infection. The patient previously had cytology sent, which were negative. The bladder was emptied. Cystoscope was removed. She was awake and brought to the recovery room in good condition. Pedro Shaver MD
== END 2017-07-06 11:15 | disposition home or self-care (01) ==
LOC: SDS 06:51
PROVIDERS: ATTEND Urology
DX: N30.21 Other chronic cystitis with hematuria (principal); I10 Essential (primary) hypertension
CPT/HCPCS: 52204; 87086; 88305; C1758; J0696; J2001; J2370; J2405; J2704; J3010; J7120 ×2; Q9966

== ENCOUNTER 2017-08-19 10:40 | Day surgery (SDC) | payer MEDICARE, BC ==
[2017-08-19 11:13] VITALS: BMI 15.9
[2017-08-19] MEDS ORDERED: Midazolam 2 MG/2 ML VIAL ONE (13:26)
[2017-08-19] MEDS ORDERED: Propofol 10 mg/ml Inj (20 ML) ONE (13:26)
[2017-08-19] MEDS ORDERED: Sodium Chloride 0.9% 1,000 ML IV SCH (13:30)
[2017-08-19 14:11] VITALS: TEMP 97.9
[2017-08-19 14:32] VITALS: RESP 16
[2017-08-19 15:35] VITALS: BP 126/65; PULSE 76; O2SAT 100
== END 2017-08-19 15:31 | disposition home or self-care (01) ==
LOC: ENDO 10:40
PROVIDERS: ATTEND Internal Medicine
DX: K57.30 Diverticulosis of large intestine without perforation or abscess without bleeding (principal); D12.2 Benign neoplasm of ascending colon; K55.20 Angiodysplasia of colon without hemorrhage; K64.8 Other hemorrhoids; J44.9 Chronic obstructive pulmonary disease, unspecified; I10 Essential (primary) hypertension; E78.00 Pure hypercholesterolemia, unspecified; E55.9 Vitamin D deficiency, unspecified; D64.9 Anemia, unspecified; Z87.440 Personal history of urinary (tract) infections; Z82.49 Family history of ischemic heart disease and other diseases of the circulatory system; Z80.9 Family history of malignant neoplasm, unspecified; F17.210 Nicotine dependence, cigarettes, uncomplicated; Z91.89 Other specified personal risk factors, not elsewhere classified; R63.4 Abnormal weight loss; R19.4 Change in bowel habit; Z12.11 Encounter for screening for malignant neoplasm of colon
CPT/HCPCS: 45380; 88305; J2250; J2704; J7040 ×2